=== PATIENT | female | born 1975 | race Caucasian/White ===

== ENCOUNTER 2020-12-01 16:56 | Outpatient (REF) | payer MEDICAID, SELFPAY ==
[2020-12-01 21:28] LABS: HCT 41.2 % (36.0-46.0); MCH 27.4 pg (27.0-33.0); MCHC 31.6 % (32.0-36.0); MCV 86.9 fL (80-95); MPV 12.1 fL (8.0-11.0); Platelet Count 227 10^3/uL (130-400); RBC 4.74 10^6/uL (3.93-5.22); RDW 13.5 % (11.7-14.6); RDW-SD 42.9 fL; WBC 9.52 10^3/uL (4.4-10.8)
[2020-12-01 21:57] LABS: Hemoglobin A1C 5.6 % (<5.7)
[2020-12-02 07:09] LABS: ALT 21 U/L (14-59); AST 12 U/L (15-37); Albumin 4.1 g/dL (3.4-5.0); Alkaline Phosphatase 85 U/L (46-116); Anion Gap 10.7 mmol/L (3-11); BUN 13 mg/dL (7-18); Bilirubin, Total 0.3 mg/dL (0.2-1.0); CO2 25.3 mmol/L (21.0-32.0); CREATININE 0.8 mg/dL (0.55-1.02); Calcium 8.7 mg/dL (8.5-10.1); Chloride 104 mmol/L (98-107); Ferritin 18 ng/mL (8-252); Glucose 143 mg/dL (74-106); Potassium 4.1 mmol/L (3.5-5.1); Sodium 140 mmol/L (136-145); TSH (W/Ref FT4) 1.24 uIU/mL (0.36-3.74); Total Protein 7.4 g/dL (6.4-8.2)
[2020-12-02 17:52] LABS: T3, Total 158 ng/dL (97-169)
[2020-12-02 19:39] LABS: Thyroglobulin Antibody 16 U/mL (<=60)
[2020-12-02 19:43] LABS: Thyroperoxidase Antibody <28 U/mL (<=60)
== END 2020-12-01 16:57 | disposition home or self-care (01) ==
LOC: NCHCN 16:56
PROVIDERS: PCP Family Medicine; Visit Provider Family Medicine
DX: R63.5 Abnormal weight gain (principal); L65.9 Nonscarring hair loss, unspecified
CPT/HCPCS: 80053; 85027; 82728; 83036; 84443; 84480; 86376; 86800

== ENCOUNTER 2020-12-14 08:04 | Outpatient (REF) | payer MEDICAID, SELFPAY | END 2020-12-14 08:05 | disposition home or self-care (01) | LOC: NCHCN 08:04 | PROVIDERS: PCP Family Medicine | DX: R63.5 Abnormal weight gain (principal); L65.9 Nonscarring hair loss, unspecified | CPT/HCPCS: 82533 ==

== ENCOUNTER 2020-12-28 01:39 | Outpatient (CLI) | payer MEDICAID, SELFPAY ==
--- NOTE | 2020-12-28 13:00 | DI.US_ITS ---
Exam(s) US PELVIS EXAM: US PELVIS CLINICAL HISTORY: FIBROID UTERUS, D25.9 TECHNIQUE: Ultrasound performed using standard protocol. COMPARISON: US TRANSVAGINAL ULTRASOUND from 06/05/2016 US TRANSVAGINAL ULTRASOUND from 06/05/2016 US Cardiac from 08/09/2016 MR MRI - PELVIS WO CONTRAST from 06/05/2017 MR MRI - PELVIS WO CONTRAST from 06/05/2017 FINDINGS: Pelvic ultrasound was performed transabdominally only. Examination is compared to prior examination of May 2016 which showed an apparent fundal fibroid measuring about 19 millimeters in greatest diam eter on trans vaginal examination. On today's examination there is a subtle area of increased echoge nicity in the fundus measuring about 19 millimeters in diameter, this may correspond to the previousl y described presumed fibroid. A prior pelvic MRI of May 2017 also showed posterior fundal fibroid and an anterior left-sided fibroid. No other abnormality seen on today's transabdominal examination. The ovaries are grossly unremarkabl e. No free fluid in the cul-de-sac. Limited scanning of the kidneys is unremarkable. IMPRESSION: Probable fundal uterine fibroid. Examination is limited by the lack of transvaginal scanning. No ot her significant findings. DATA REPOSITORY:
== END 2020-12-28 01:59 ==
PROVIDERS: PCP Family Medicine; Visit Provider Family Medicine
DX: R93.5 Abnormal findings on diagnostic imaging of other abdominal regions, including retroperitoneum (principal)
CPT/HCPCS: 76856

== ENCOUNTER 2021-08-12 14:06 | Outpatient (REF) | payer MEDICAID, SELFPAY ==
[2021-08-15 15:31] LABS: COVID-19 RT-PCR UVMMC Result Negative (Negative)
== END 2021-08-12 14:07 | disposition home or self-care (01) ==
LOC: LBN 14:06
PROVIDERS: PCP Family Medicine; Visit Provider Physician Assistant Medical
DX: J02.9 Acute pharyngitis, unspecified (principal); Z20.822 Contact with and (suspected) exposure to COVID-19
CPT/HCPCS: U0003; 87070

== ENCOUNTER → 2021-08-15 09:15 | Outpatient (CLI) | payer MEDICAID, SELFPAY ==
--- NOTE | 2021-08-15 | DI.RAD_ITS ---
Exam(s) XR ABDOMEN FLAT PLATE EXAM: 2D digital imaging was performed. CLINICAL HISTORY: CHANGE IN STOOL HABITS-R19.4. COMPARISON: No previous for comparison. TECHNIQUE: Supine views of the abdomen performed. Two views were obtained. FINDINGS: BOWEL GAS PATTERN: Nondistended. There is a small to moderate amount of stool throughout the colon. CALCIFICATIONS: No radiopaque calcifications. Phleboliths are seen in the pelvis. OSSEOUS STRUCTURES: Normal for age. OTHER FINDINGS: None. Lung bases: Clear. IMPRESSION: 1. [id number] amount of stool throughout the colon. 2. No evidence of bowel obstruction. DATA REPOSITORY: RADIATION DOSE DELIVERED:
== END ==
PROVIDERS: PCP Family Medicine; Visit Provider Family Medicine
DX: R19.4 Change in bowel habit (principal)
CPT/HCPCS: 74018

== ENCOUNTER 2022-09-06 16:53 | Outpatient (REF) | payer MEDICAID, SELFPAY ==
[2022-09-06 17:02] LABS: ALT 18 U/L (14-59); AST 16 U/L (15-37); Albumin 3.9 g/dL (3.4-5.0); Alkaline Phosphatase 73 U/L (46-116); Anion Gap 7.3 mmol/L (3-11); BUN 11 mg/dL (7-18); Bilirubin, Total 0.4 mg/dL (0.2-1.0); CO2 27.7 mmol/L (21.0-32.0); CREATININE 0.9 mg/dL (0.55-1.02); Calcium 9.3 mg/dL (8.5-10.1); Chloride 104 mmol/L (98-107); Estimated GFR 79.35 (mL/min/1.73m2); Glucose 101 mg/dL (74-106); Potassium 4.1 mmol/L (3.5-5.1); Sodium 139 mmol/L (136-145); Total Protein 7.3 g/dL (6.4-8.2)
[2022-09-06 17:07] LABS: Hemoglobin A1C 5.6 % (<5.7)
== END 2022-09-06 16:54 | disposition home or self-care (01) ==
LOC: NCHCN 16:53
PROVIDERS: PCP Family Medicine; Visit Provider Family Medicine
DX: Z13.228 Encounter for screening for other metabolic disorders (principal); Z13.1 Encounter for screening for diabetes mellitus; Z00.00 Encounter for general adult medical examination without abnormal findings
CPT/HCPCS: 80053; 83036

== ENCOUNTER 2023-04-20 10:51 | Emergency (ER) | payer MEDICAID, SELFPAY ==
[2023-04-20] VITALS (15 sets, daily range): BP systolic 130–147; BP diastolic 74–95; PULSE 99–129; RESP 16–18; TEMP 36.6–36.8; O2SAT 84–100
--- NOTE | 2023-04-20 11:05 | ED.GENADUL_ITS ---
Discharge Plan Disposition Patient Disposition: Home Discharge Details Clinical Impression: Acute suprapubic pain Primary Care Provider: Brissa Hoyt ED Provider: Christopher Williamson Home Meds and New Rx's Prescriptions: No Action No Known Home Meds Discharge Instructions Instructions: Abdominal Pain (ED) Additional Instructions: You were seen in the emergency department for your nausea and vomiting. Your blood counts show that you are not anemic. Your blood work shows that your kidneys are working well. Please return to the emergency department if you cannot eat or drink as result of nausea or vomiting or if you have any other concerns. Otherwise please follow-up with your primary care provider next week. Discharge Data Discharge Date/Time-TO BE ENTERED AT DEPARTURE: 04/20/23 13:37 HPI General Date/Time Provider Initiated Documentation: 04/20/23 11:04 . HPI Narrative: MDM This is an overall very well-appearing normothermic but tachycardic 47-year-old female with nausea vomiting diarrhea and vaginal bleeding concerning for the possibility of ectopic versus heavy vaginal bleeding from period. Patient had a negative FAST exam but will obtain a urine test. She is normotensive and her tachycardia is improving. Will order type and screen basic labs and 1 L of IV fluids. She has no pain out of proportion to suggest necrotizing soft tissue infection. No abnormal vaginal discharge to suggest se xually transmitted infection and no new partners. Patient is concerned that so could be having a miscarriage. No right lower quadrant tenderness to suggest appendicitis. No left lower quadrant tenderness to suggest diverticulitis. I considered ovarian torsion however the patient is having suprapubic discomfort and not having lateralizing symptoms I did not feel that she required a transvaginal ultrasound. No epigastric tenderness to suggest pancreatitis. No dysuria no frequency so my suspicion is low for UTI. No rash to abdomen to suggest zoster. Will reassess following labs and fluid and given improving heart rate will defer ECG at this point in time. 11:28 AM Negative urine test. Her pain resolved in the ED. She declined analgesia. 12 PM CBC showed mild leukocytosis but no anemia. No thrombocytopenia. Urinalysis showing large blood nitrite negative not consistent with UTI. 12:15 PM Reassuring normal TSH. Mild anion gap and mild hyperglycemia but normal bicar bonate??not consistent with DKA. No acute electrolyte abnormalities. 1:21 PM Patient's heart rate normalized to 99. We discussed return to the ED for any vaginal bleeding more than 1 pad per hour or any syncope or any chest pain. She understood her return indications. I advised PCP follow-up next week. Will proceed with empiric trial of expectant outpatient management. Chronic conditions affecting the care of the patient: N/A History obtained from an outside historian: N/A External record review: N/A Medications: none Social determinants of health affecting disposition: N/A Management discussed with: N/A Treatment/interventions considered: N/A Response to therapies provided: improved symptoms in the ED HPI This is a 47-year-old arriving to the emergency department with her h usband via private vehicle in the setting of nausea vomiting and diarrhea that began last week. Patient reports that 2 weeks ago she had an episode of nausea and vomiting. This improved and she felt as if she had had a stomach bug. Last night her nausea and vomiting returned. She was 2 and half weeks late for her period and she began having vaginal bleeding last night. She has used 3 pads in the past 12 hours. She has noted some clots. She is sexually active with a single male partner. She denies any abnormal vaginal discharge. She has no vaginal pain. Denies any trauma to her vagina. Denies routine tobacco, ethanol, and illicits. She is not on any blood thinners. Exam General: Well-appearing in no acute distress speaking in complete sentences. Head: Normocephalic, atraumatic. Eye: Extraocular eye movements intact. No conjunctival injection. No scleral icterus. Ear, nose, mouth, throat: Grossly normal inspection. Normal voice, handling secretions normally. Neck: Trachea midline. Cardiovascular: Well-perfused distal extremities. Rapid regular rate. Respiratory: Nonlabored respiration. Clear lungs bilaterally. Gastrointestinal: Nondistended abdomen.Minimal suprapubic tenderness. No right lower quadrant tenderness nor any left lower quadrant tenderness. No rebound. No guarding. Musculoskeletal: No edema. Moving all 4 extremities spontaneously. Skin: Normal for age and race, grossly normal temperature and turgor. No acute rash. Neurologic: Alert and appropriate, no apparent acute deficits. Psychiatric: Mood and manner are appropriate. Grooming and personal hygiene are appropriate. Related Data Home Medications Medication Instructions Recorded Confirmed Unknown [No Known Home Meds] 10/15/19 06/22/20 Allergies Allergy/AdvReac Type Severity Reaction Status Date / Time No Known Allergies Allergy Verified 06/22/20 10:30 General Stated Complaint: Nausea/Vomit/Diar LANDON: 3 Course Vital Signs Vital signs: Vital Signs Temperature 36.7 C 04/20/23 10:57 Pulse 18 L 04/20/23 10:57 Respiratory Rate 129 H 04/20/23 10:57 Blood Pressure 147/95 H 04/20/23 10:57 Pulse Oximetry 97 04/20/23 10:57 Temperature 36.7 C 04/20/23 10:57 Temperature Source Oral 04/20/23 10:57 Pulse 18 L 04/20/23 10:57 Respiratory Rate 129 H 04/20/23 10:57 Blood Pressure 147/95 H 04/20/23 10:57 Pulse Oximetry 97 04/20/23 10:57 Pain Level 0 04/20/23 10:57 Medical Decision Making Quality:SDOH Health Related Social Needs: No Data to Display PFSH All Active Problems (Updated 04/20/23 @ 12:31 by Christopher Williamson MD) Acute suprapubic pain (Acute) Iliotibial band syndrome affecting left lower leg (Acute) Trochanteric bursitis, left hip (Acute) Social History Smoking/Tobacco Use Status: Never Smoking risk assessment performed?: Yes Alcohol Intake: never Drug use: Never Substance use type: does not use Housing: apartment Current gender identity: female Do you feel safe at home: Yes Do you feel safe in your relationship?: Yes POCUS Exam (ED) FAST Exam DATE OF EXAM: 04/20/23 TIME OF EXAM: 11:26 PROVIDER THAT PERFORMED THE STUDY: Christopher Williamson REASON FOR EXAM: Abdominal pain VISUALIZED STRUCTURES: Hepatorenal space, Pelvis and Perisplenic space PERTINENT FINDINGS/IMPRESSION: no apparent free fluid DIFFERENTIAL DIAGNOSES: No intra-abdominal free fluid. Limited Transthoracic Exam: Did not tolerate exam Limited Chest Exam: Did not tolerate exam Limited Abdominal Exam: Exam complete Limited Retroperitoneal Exam: Exam complete Limited Pelvic Exam DATE OF EXAM: 04/20/23 TIME OF EXAM: 11:27 PROVIDER THAT PERFORMED THE STUDY: Christopher Williamson IS THIS A REPEAT EXAM DURING THIS ENCOUNTER: No Type of Exam: Pelvic Trans Abdominal Exam REASON FOR EXAM: Vaginal Bleeding VISUALIZED STRUCTURES: Uterus PERTINENT FINDINGS/IMPRESSION: Other impression: No definitive intrauterine Exam Complete
[2023-04-20 11:38] LABS: Bilirubin Negative (Negative); Blood Large (Negative); Clarity Cloudy (Clear); Glucose Negative (Negative); Ketones Trace mg/dL (Negative); Leukocyte Esterase Trace (Negative); Nitrite Negative (Negative); Urobilinogen 0.2 mg/dL (Up to 0.2)
[2023-04-20 11:39] LABS: Abs Immature Grans 0.04 10^3/uL (0.0-0.06); Absolute Eosinophil Count 0.01 10^3/uL (0.0-0.7); Absolute Monocyte Count 0.28 10^3/uL (0.1-0.8); Absolute Neutrophil Count 11.92 10^3/uL (1.2-6.7); Basophils % 0.2; Eosinophils % 0.1; HCT 41.2 % (36.0-46.0); HGB 13.1 g/dL (11.2-15.7); Immature Grans % 0.3; Lymphocytes % 2.4; MCH 26.7 pg (27.0-33.0); MCHC 31.8 % (32.0-36.0); MCV 84 fL (80-95); Monocytes % 2.2; Neutrophils % 94.8; Platelet Count 202 10^3/uL (130-400); RDW 14.4 % (11.7-14.6); RDW-SD 44.3 fL; WBC 12.57 10^3/uL (4.4-10.8)
[2023-04-20 11:40] LABS: Absolute Basophil Count 0.03 10^3/uL (0.0-0.2)
[2023-04-20 11:41] LABS: RBC >50 HPF (0-2)
[2023-04-20 11:42] LABS: C & S Indicated? Yes
[2023-04-20] MEDS: Normal Saline 1,000 ML 1000 ML IV (11:45)
[2023-04-20 12:03] LABS: Anion Gap 11.8 mmol/L (3-11); BUN 14 mg/dL (7-18); CO2 25.2 mmol/L (21.0-32.0); CREATININE 0.8 mg/dL (0.55-1.02); Chloride 103 mmol/L (98-107); Estimated GFR 90.83 (mL/min/1.73m2); Glucose 136 mg/dL (74-106); Potassium 3.6 mmol/L (3.5-5.1); Sodium 140 mmol/L (136-145); TSH (W/Ref FT4) 1.08 uIU/mL (0.36-3.74)
--- NOTE | 2023-04-20 13:01 | NUR.NOTE ---
Patient was offered Analgesics and nitin, refused same, stating even though she is having a little pain she does not want any pain medication. Patient was educated about the purpose of medications, but still refused.
== END 2023-04-20 13:37 | disposition home or self-care (01) ==
PROVIDERS: Emergency Provider Emergency Medicine; PCP Family Medicine
DX: R10.2 Pelvic and perineal pain (principal); R19.7 Diarrhea, unspecified; R11.2 Nausea with vomiting, unspecified
CPT/HCPCS: 76705; 76857; 80048; 86850; 86900; 86901; 96360; 99284; 81003; 81015; 84443; 85025; 87086; 99283

== ENCOUNTER 2023-09-28 21:20 | Outpatient (REF) | payer MEDICAID, SELFPAY ==
[2023-10-01 11:05] LABS: Lyme Ab w Rflx to Lyme Confirm Positive (Negative)
[2023-10-01 14:01] LABS: Lyme IgG Ab Positive (Negative); Lyme IgM Ab Positive (Negative)
[2023-10-02 14:38] LABS: Anaplasma phagocytophilum Negative (Negative); B. miyamotoi PCR Negative (Negative); Babesia divergens/MO-1 Negative (Negative); Babesia duncani Negative (Negative); Babesia microti Negative (Negative); Ehrlichia chaffeensis Negative (Negative); Ehrlichia ewingii/canis Negative (Negative); Ehrlichia muris eauclairensis Negative (Negative)
== END 2023-09-28 21:21 | disposition home or self-care (01) ==
LOC: LBN 21:20
PROVIDERS: PCP Family Medicine; Visit Provider Physician Assistant Medical
DX: W57.XXXA Bitten or stung by nonvenomous insect and other nonvenomous arthropods, initial encounter (principal); S40.261A Insect bite (nonvenomous) of right shoulder, initial encounter
CPT/HCPCS: 86617; 87798; 86618